=== PATIENT | female | born 1970 | race Caucasian/White ===

== ENCOUNTER 2023-01-15 14:25 | Emergency (ER) | payer MEDICAID ==
[~2023-01-15] VITALS: Ht 167.6 cm; Wt 79.5 kg
[~2023-01-15 14:25] MED LIST: HYDR-4383 PO; OMEP20CA15 PO
[2023-01-15 14:31] VITALS: BP 152/91
[2023-01-15 15:01] LABS: BASOPHILS # (AUTO) 0.1 X10'3 (0-0.2); EOSINOPHILS # (AUTO) 0.1 X10'3 (0-0.9); EOSINOPHILS % (AUTO) 1.3 % (0-6); HEMATOCRIT 47.3 % (35.0-45.0); HEMOGLOBIN 16.2 g/dl (12.0-16.0); LYMPHOCYTES # (AUTO) 1.8 X10'3 (1.1-4.8); MEAN CORPUSCULAR HEMOGLOBIN 32.3 PG (27.0-31.0); MEAN CORPUSCULAR HGB CONC 34.2 g/dL (33.0-36.5); MEAN CORPUSCULAR VOLUME 94.4 FL (78-98); MEAN PLATELET VOLUME 8.9 FL (7.4-10.4); MONOCYTES # (AUTO) 0.8 X10'3 (0-0.9); MONOCYTES % (AUTO) 10.6 % (2-12); NEUTROPHILS # (AUTO) 4.9 X10'3 (1.8-7.7); NEUTROPHILS % (AUTO) 64.1 % (42-75); PLATELET COUNT 190 X10'3 (140-440); RED BLOOD COUNT 5.01 X10'6 (4.20-5.60); RED CELL DISTRIBUTION WIDTH 14.4 % (11.5-14.5); WHITE BLOOD COUNT 7.7 X10'3 (4.5-11.0)
[2023-01-15 15:14] LABS: ALANINE AMINOTRANSFERASE 44 U/L (12-78); ALBUMIN 2.9 G/DL (3.4-5.0); ALBUMIN/GLOBULIN RATIO 0.6 (1.1-1.5); ALKALINE PHOSPHATASE 158 IU/L (46-116); ANION GAP 6 (8-16); ASPARTATE AMINO TRANSFERASE 82 U/L (10-37); BILIRUBIN,TOTAL 3.1 MG/DL (0.1-1.0); BLOOD UREA NITROGEN 6 MG/DL (7-18); BUN/CREATININE RATIO 8.7 (6.6-38.0); CALCIUM 8.7 MG/DL (8.5-10.1); CHLORIDE 97 MMOL/L (99-107); CREATININE 0.69 MG/DL (0.40-0.90); GLUCOSE 114 MG/DL (70-104); LIPASE 135 U/L (73-393); POTASSIUM 3.4 MMOL/L (3.5-5.1); SODIUM 133 MMOL/L (135-145); TOTAL CARBON DIOXIDE 30.4 MMOL/L (24-32); TOTAL PROTEIN 7.6 G/DL (6.4-8.2); eGFR 89 ML/MIN
[2023-01-15] MEDS ORDERED: normal saline 1000ML IV soln IVB ONE (15:55)
[2023-01-15 17:21] LABS: CLARITY,URINE SLIGHTLY CLOUDY (Clear); COLOR,URINE AMBER (Yellow)
[2023-01-15 17:22] LABS: URINE HCG NEGATIVE (NEG)
[2023-01-15 17:24] LABS: UA COLLECTION TYPE STRAIGHT CATH
[2023-01-15 17:28] LABS: BACTERIA,URINE FEW /HPF (Neg); MUCUS STRANDS MANY /LPF (Neg); SQUAMOUS EPITHELIAL CELL,UR FEW /LPF (FEW); TRANSITIONAL EPI CELLS,URINE FEW /HPF; WBC,URINE 0-4 /HPF (0-4)
[2023-01-15 17:29] LABS: FINE GRANULAR CAST 0-3 /LPF (NEGATIVE)
== END 2023-01-15 18:15 | disposition home or self-care (01) ==
LOC: ER 14:25
DX: E86.0 Dehydration (principal); R33.9 Retention of urine, unspecified; R10.9 Unspecified abdominal pain; R14.0 Abdominal distension (gaseous); K21.9 Gastro-esophageal reflux disease without esophagitis; J44.9 Chronic obstructive pulmonary disease, unspecified; E78.00 Pure hypercholesterolemia, unspecified; Z87.81 Personal history of (healed) traumatic fracture; F17.200 Nicotine dependence, unspecified, uncomplicated; Z79.899 Other long term (current) drug therapy; Z79.1 Long term (current) use of non-steroidal anti-inflammatories (NSAID)
CPT/HCPCS: 36415; 76700; 80053; 81001; 81025; 83690; 85025; 96360; 96361; 99284; J7030

== ENCOUNTER 2023-01-24 16:47 | Emergency (ER) | payer MEDICAID ==
[~2023-01-24] VITALS: Ht 167.6 cm; Wt 82.6 kg
[2023-01-24] MEDS ORDERED: LIDOcaine 1% W/epiNEPHrine 1:100,000 20ml vial SQ ONE (19:10)
[2023-01-24] MEDS ORDERED: LIDOCAINE 2%/EPI 1:100,000 inj. Multi-dose 20 ML VIAL SQ ONE (19:15)
[2023-01-24 20:27] VITALS: BP 150/91
[2023-01-24 21:04] LABS: ALBUMIN,BODY FLUID 0.7 G/DL; LDH,BODY FLUID 54 U/L
[2023-01-24 21:17] LABS: TOTAL PROTEIN,BODY FLUID < 2.0 G/DL
[2023-01-24 22:27] LABS: BFAPPEAR HAZY; BFCOLOR YELLOW; BFVOLUME 10 ML
[2023-01-24 22:31] LABS: BF MESOTHELIAL CELLS FEW; BF RBC COUNT 95 /CU MM; BF WBC COUNT 98 /CU MM (0-1000); LYMPHOCYTES,BODY FLUID 20 %; MONOCYTES,BODY FLUID 73 %; NEUTROPHILS,BODY FLUID 7 %
== END 2023-01-24 20:33 | disposition home or self-care (01) ==
LOC: ER 16:47
DX: R18.8 Other ascites (principal); E78.00 Pure hypercholesterolemia, unspecified; J44.9 Chronic obstructive pulmonary disease, unspecified; K21.9 Gastro-esophageal reflux disease without esophagitis; Z87.81 Personal history of (healed) traumatic fracture; F17.200 Nicotine dependence, unspecified, uncomplicated; Z79.899 Other long term (current) drug therapy
CPT/HCPCS: 36415; 49083; 82042; 83615; 84157; 89051; 99285

== ENCOUNTER 2023-02-02 19:44 | Emergency (ER) | payer MEDICAID ==
[~2023-02-02] VITALS: Ht 167.6 cm; Wt 82.1 kg
[2023-02-02] MEDS ORDERED: LIDOCAINE 2%/EPI 1:100,000 inj. Multi-dose 20 ML VIAL IJ ONE (20:40)
[2023-02-02 21:29] LABS: BASOPHILS # (AUTO) 0.1 X10'3 (0-0.2); BASOPHILS % (AUTO) 0.7 % (0-1); EOSINOPHILS # (AUTO) 0.1 X10'3 (0-0.9); EOSINOPHILS % (AUTO) 1.7 % (0-6); HEMATOCRIT 41.8 % (35.0-45.0); HEMOGLOBIN 14.5 g/dl (12.0-16.0); LYMPHOCYTES # (AUTO) 2.1 X10'3 (1.1-4.8); LYMPHOCYTES % (AUTO) 25.1 % (21-51); MEAN CORPUSCULAR HEMOGLOBIN 32.4 PG (27.0-31.0); MEAN CORPUSCULAR HGB CONC 34.7 g/dL (33.0-36.5); MEAN CORPUSCULAR VOLUME 93.2 FL (78-98); MEAN PLATELET VOLUME 8.8 FL (7.4-10.4); MONOCYTES % (AUTO) 11.7 % (2-12); NEUTROPHILS % (AUTO) 60.8 % (42-75); PLATELET COUNT 210 X10'3 (140-440); RED BLOOD COUNT 4.49 X10'6 (4.20-5.60); RED CELL DISTRIBUTION WIDTH 13.8 % (11.5-14.5); WHITE BLOOD COUNT 8.2 X10'3 (4.5-11.0)
[2023-02-02 21:58] LABS: ALANINE AMINOTRANSFERASE 42 U/L (12-78); ALBUMIN 2.5 G/DL (3.4-5.0); ALBUMIN/GLOBULIN RATIO 0.5 (1.1-1.5); ALKALINE PHOSPHATASE 112 IU/L (46-116); ANION GAP 9 (8-16); ASPARTATE AMINO TRANSFERASE 64 U/L (10-37); BILIRUBIN,TOTAL 1.7 MG/DL (0.1-1.0); BLOOD UREA NITROGEN 9 MG/DL (7-18); BUN/CREATININE RATIO 13.8 (10.0-20.0); CALCIUM 8.5 MG/DL (8.5-10.1); CHLORIDE 98 MMOL/L (99-107); CREATININE 0.65 MG/DL (0.40-0.90); GLUCOSE 104 MG/DL (70-104); LIPASE 105 U/L (73-393); SODIUM 132 MMOL/L (135-145); TOTAL PROTEIN 7.1 G/DL (6.4-8.2); eGFR > 90 ML/MIN
[2023-02-02 22:05] LABS: POTASSIUM 2.9 MMOL/L (3.5-5.1)
[2023-02-02] MEDS ORDERED: potassium Cl 20 mEq SR tablet PO ONE (22:10)
[2023-02-03] MEDS ORDERED: POTA-192 PO (00:54)
[2023-02-03 01:19] VITALS: BP 125/89
== END 2023-02-03 01:24 | disposition home or self-care (01) ==
LOC: ER 19:45
DX: R18.8 Other ascites (principal); R06.02 Shortness of breath; E78.00 Pure hypercholesterolemia, unspecified; J44.9 Chronic obstructive pulmonary disease, unspecified; K21.9 Gastro-esophageal reflux disease without esophagitis; Z98.890 Other specified postprocedural states; Z98.51 Tubal ligation status; Z72.89 Other problems related to lifestyle; Z79.899 Other long term (current) drug therapy
CPT/HCPCS: 36415; 49083; 80053; 83690; 85025; 99285

== ENCOUNTER 2023-02-09 15:58 | Emergency (ER) | payer MEDICAID ==
[~2023-02-09] VITALS: Ht 167.6 cm; Wt 79.1 kg
[~2023-02-09 15:58] MED LIST changes: +POTA-192 PO
[2023-02-09] MEDS ORDERED: LIDOcaine 1% 30ml preserv. free vial IJ ONE (18:50)
[2023-02-09 19:09] LABS: BASOPHILS # (AUTO) 0.1 X10'3 (0-0.2); BASOPHILS % (AUTO) 1.5 % (0-1); EOSINOPHILS # (AUTO) 0.2 X10'3 (0-0.9); HEMATOCRIT 46.3 % (35.0-45.0); HEMOGLOBIN 15.7 g/dl (12.0-16.0); LYMPHOCYTES # (AUTO) 2.2 X10'3 (1.1-4.8); LYMPHOCYTES % (AUTO) 29.3 % (21-51); MEAN CORPUSCULAR HEMOGLOBIN 32.2 PG (27.0-31.0); MEAN CORPUSCULAR HGB CONC 33.9 g/dL (33.0-36.5); MEAN CORPUSCULAR VOLUME 94.9 FL (78-98); MEAN PLATELET VOLUME 8.5 FL (7.4-10.4); MONOCYTES # (AUTO) 0.8 X10'3 (0-0.9); MONOCYTES % (AUTO) 11.1 % (2-12); NEUTROPHILS % (AUTO) 55.1 % (42-75); PLATELET COUNT 240 X10'3 (140-440); RED BLOOD COUNT 4.88 X10'6 (4.20-5.60); WHITE BLOOD COUNT 7.3 X10'3 (4.5-11.0)
[2023-02-09 19:22] LABS: ALANINE AMINOTRANSFERASE 38 U/L (12-78); ALBUMIN 2.3 G/DL (3.4-5.0); ALBUMIN/GLOBULIN RATIO 0.5 (1.1-1.5); ALKALINE PHOSPHATASE 122 IU/L (46-116); ANION GAP 6 (8-16); ASPARTATE AMINO TRANSFERASE 54 U/L (10-37); BILIRUBIN,TOTAL 1.4 MG/DL (0.1-1.0); BLOOD UREA NITROGEN 8 MG/DL (7-18); BUN/CREATININE RATIO 11.3 (10.0-20.0); CALCIUM 8.4 MG/DL (8.5-10.1); CHLORIDE 99 MMOL/L (99-107); CREATININE 0.71 MG/DL (0.40-0.90); GLUCOSE 141 MG/DL (70-104); POTASSIUM 4.3 MMOL/L (3.5-5.1); SODIUM 131 MMOL/L (135-145); TOTAL CARBON DIOXIDE 25.9 MMOL/L (24-32); TOTAL PROTEIN 7.1 G/DL (6.4-8.2); eGFR 86 ML/MIN
[2023-02-09 19:30] VITALS: BP_DIAS 88
[2023-02-09] MEDS ORDERED: spironolactone 25 MG tablet PO STA (19:53)
[2023-02-09] MEDS ORDERED: furosemide 20MG tablet PO ONE (19:55)
[2023-02-09 20:14] VITALS: BP_SYST 139
[2023-02-09] MEDS ORDERED: SPIR50TA5 PO ×2 (20:20)
[2023-02-09] MEDS ORDERED: FURO40TA4 PO ×2 (20:20)
== END 2023-02-09 20:30 | disposition home or self-care (01) ==
LOC: ER 15:59
DX: K70.31 Alcoholic cirrhosis of liver with ascites (principal); E78.00 Pure hypercholesterolemia, unspecified; J44.9 Chronic obstructive pulmonary disease, unspecified; K21.9 Gastro-esophageal reflux disease without esophagitis; Z98.51 Tubal ligation status; Z72.89 Other problems related to lifestyle; Z79.899 Other long term (current) drug therapy
CPT/HCPCS: 36415; 80053; 83735; 85025; 99283

== ENCOUNTER 2023-02-16 07:01 | Day surgery (SDC) | payer MEDICAID ==
[~2023-02-16] VITALS: Ht 167.6 cm; Wt 78.7 kg
[2023-02-16] VITALS (8 sets, daily range): BP systolic 103–142; BP diastolic 53–81
[~2023-02-16 07:01] MED LIST changes: +FURO40TA4 PO; +SPIR50TA5 PO
[2023-02-16] MEDS ORDERED: albumin 25% 100mL bottle x 1 IV PRN (07:20)
[2023-02-16] MEDS ORDERED: POTA10TA PO (07:29)
[2023-02-16] MEDS ORDERED: ATOR10TA70 PO (07:29)
[2023-02-16] MEDS ORDERED: BUDE10.27 INH (07:29)
[2023-02-16] MEDS ORDERED: ALBU18HF2 PO (07:29)
[2023-02-16] MEDS ORDERED: LIDOcaine 1% 30ml preserv. free vial SQ STA (07:43)
== END 2023-02-16 11:15 | disposition home or self-care (01) ==
LOC: SSTAY O 07:01
PROVIDERS: ATTEND Radiology Vascular & Interventional Radiology
DX: K70.31 Alcoholic cirrhosis of liver with ascites (principal); E78.00 Pure hypercholesterolemia, unspecified; J44.9 Chronic obstructive pulmonary disease, unspecified; K21.9 Gastro-esophageal reflux disease without esophagitis; Z98.51 Tubal ligation status; Z98.890 Other specified postprocedural states; F17.210 Nicotine dependence, cigarettes, uncomplicated; F15.91 Other stimulant use, unspecified, in remission; F10.91 Alcohol use, unspecified, in remission; Z79.899 Other long term (current) drug therapy
CPT/HCPCS: 49083; J3490; P9047; A6258; C1729

== ENCOUNTER 2023-02-27 08:05 | Day surgery (SDC) | payer MEDICAID ==
[~2023-02-27] VITALS: Ht 167.6 cm; Wt 77.4 kg
[2023-02-27] VITALS (8 sets, daily range): BP systolic 110–128; BP diastolic 70–89
[~2023-02-27 08:05] MED LIST changes: +ALBU18HF2 PO; +ATOR10TA70 PO; +BUDE10.27 INH; -FURO40TA4 PO; -HYDR-4383 PO; -POTA-192 PO; +POTA10TA PO; -SPIR50TA5 PO
[2023-02-27] MEDS ORDERED: LIDOcaine 1%/PF 5ML 10 MG/ML VIAL SQ ONE (08:15)
[2023-02-27] MEDS: albumin 25% 100mL bottle x 1 IV PRN ×2 (09:42→10:23)
== END 2023-02-27 11:05 | disposition home or self-care (01) ==
LOC: SSTAY O 08:05
PROVIDERS: ATTEND Radiology Vascular & Interventional Radiology
DX: K70.31 Alcoholic cirrhosis of liver with ascites (principal); E78.00 Pure hypercholesterolemia, unspecified; K21.9 Gastro-esophageal reflux disease without esophagitis; J44.9 Chronic obstructive pulmonary disease, unspecified; Z98.890 Other specified postprocedural states; Z98.51 Tubal ligation status; F17.210 Nicotine dependence, cigarettes, uncomplicated; F15.91 Other stimulant use, unspecified, in remission; F10.91 Alcohol use, unspecified, in remission; Z79.899 Other long term (current) drug therapy
CPT/HCPCS: 49083; J3490; P9047; A6258; A6449

== ENCOUNTER 2023-03-06 08:55 | Day surgery (SDC) | payer MEDICAID ==
[~2023-03-06] VITALS: Ht 167.6 cm; Wt 76.2 kg
[~2023-03-06 08:55] MED LIST changes: -POTA10TA PO
[2023-03-06] MEDS ORDERED: LIDOcaine 1%/PF 5ML 10 MG/ML VIAL SQ ONE (09:05)
[2023-03-06 09:06] VITALS: BP 123/85
[2023-03-06] MEDS ORDERED: albumin 25% 100mL bottle x 1 IV PRN (09:10)
[2023-03-06] MEDS ORDERED: IBUP-1984 PO (09:15)
[2023-03-06 11:09] VITALS: BP 135/77
[2023-03-06 11:24] VITALS: BP 144/101
[2023-03-06 11:39] VITALS: BP 151/92
== END 2023-03-06 11:55 | disposition home or self-care (01) ==
LOC: SSTAY O 08:55
PROVIDERS: ATTEND Radiology Vascular & Interventional Radiology
DX: K70.31 Alcoholic cirrhosis of liver with ascites (principal); J44.9 Chronic obstructive pulmonary disease, unspecified; K21.9 Gastro-esophageal reflux disease without esophagitis; F17.210 Nicotine dependence, cigarettes, uncomplicated; Z72.89 Other problems related to lifestyle; Z98.51 Tubal ligation status; Z98.890 Other specified postprocedural states; Z79.899 Other long term (current) drug therapy
CPT/HCPCS: 49083; J3490; P9047; A6258; A6449

== ENCOUNTER 2023-03-13 08:11 | Day surgery (SDC) | payer MEDICAID ==
[~2023-03-13] VITALS: Ht 167.6 cm; Wt 73.2 kg
[~2023-03-13 08:11] MED LIST changes: +IBUP-1984 PO
[2023-03-13] MEDS ORDERED: LIDOcaine 1%/PF 5ML 10 MG/ML VIAL SQ ONE (08:20)
[2023-03-13 08:30] VITALS: BP 103/59
[2023-03-13] MEDS ORDERED: albumin 25% 100mL bottle x 1 IV PRN (09:40)
[2023-03-13 09:55] VITALS: BP 113/73
[2023-03-13 10:00] VITALS: BP 122/76
[2023-03-13 10:15] VITALS: BP 119/81
[2023-03-13 10:30] VITALS: BP 128/69
[2023-03-13 10:50] VITALS: BP 128/69
== END 2023-03-13 10:50 | disposition home or self-care (01) ==
LOC: SSTAY O 08:11
PROVIDERS: ATTEND Radiology Vascular & Interventional Radiology
DX: K70.31 Alcoholic cirrhosis of liver with ascites (principal); E78.00 Pure hypercholesterolemia, unspecified; J44.9 Chronic obstructive pulmonary disease, unspecified; K21.9 Gastro-esophageal reflux disease without esophagitis; Z98.890 Other specified postprocedural states; Z98.51 Tubal ligation status; F17.210 Nicotine dependence, cigarettes, uncomplicated; F10.91 Alcohol use, unspecified, in remission; F15.91 Other stimulant use, unspecified, in remission; Z79.899 Other long term (current) drug therapy
CPT/HCPCS: 49083; J3490; P9047; A6258; A6449

== ENCOUNTER 2023-03-21 07:51 | Day surgery (SDC) | payer MEDICAID ==
[2023-03-21] VITALS (8 sets, daily range): BP systolic 100–141; BP diastolic 55–84
[~2023-03-21] VITALS: Ht 165.1 cm; Wt 77.2 kg
[2023-03-21] MEDS ORDERED: LIDOcaine 1%/PF 5ML 10 MG/ML VIAL SQ ONE (08:15)
[2023-03-21] MEDS: albumin 25% 100mL bottle x 1 IV PRN ×2 (09:44→10:40)
== END 2023-03-21 11:30 | disposition home or self-care (01) ==
LOC: SSTAY O 07:51
PROVIDERS: ATTEND Radiology Vascular & Interventional Radiology
DX: K70.31 Alcoholic cirrhosis of liver with ascites (principal); E78.00 Pure hypercholesterolemia, unspecified; K21.9 Gastro-esophageal reflux disease without esophagitis; J44.9 Chronic obstructive pulmonary disease, unspecified; Z98.890 Other specified postprocedural states; Z98.51 Tubal ligation status; F17.210 Nicotine dependence, cigarettes, uncomplicated; F10.91 Alcohol use, unspecified, in remission; F15.91 Other stimulant use, unspecified, in remission; Z79.899 Other long term (current) drug therapy
CPT/HCPCS: 49083; J3490; P9047; A6258

== ENCOUNTER 2023-03-28 06:32 | Day surgery (SDC) | payer MEDICAID ==
[2023-03-28] VITALS (7 sets, daily range): BP systolic 110–133; BP diastolic 51–86
[~2023-03-28] VITALS: Ht 167.6 cm; Wt 77.6 kg
[2023-03-28] MEDS ORDERED: LIDOcaine 1%/PF 5ML 10 MG/ML VIAL SQ ONE (06:50)
[2023-03-28] MEDS: albumin 25% 100mL bottle x 1 IV PRN ×2 (08:49→09:19)
== END 2023-03-28 10:15 | disposition home or self-care (01) ==
LOC: SSTAY O 06:32
PROVIDERS: ATTEND Radiology Diagnostic Radiology
DX: K70.31 Alcoholic cirrhosis of liver with ascites (principal); E78.00 Pure hypercholesterolemia, unspecified; J44.9 Chronic obstructive pulmonary disease, unspecified; K21.9 Gastro-esophageal reflux disease without esophagitis; Z98.890 Other specified postprocedural states; Z98.51 Tubal ligation status; F17.210 Nicotine dependence, cigarettes, uncomplicated; F15.91 Other stimulant use, unspecified, in remission; F10.91 Alcohol use, unspecified, in remission; Z79.899 Other long term (current) drug therapy
CPT/HCPCS: 49083; J3490; P9047; A6258; A6449

== ENCOUNTER 2023-04-04 07:55 | Day surgery (SDC) | payer MEDICAID ==
[~2023-04-04] VITALS: Ht 167.6 cm; Wt 76.0 kg
[2023-04-04] VITALS (7 sets, daily range): BP systolic 103–136; BP diastolic 57–136
[2023-04-04] MEDS ORDERED: LIDOcaine 1%/PF 5ML 10 MG/ML VIAL SQ ONE (08:00)
[2023-04-04] MEDS ORDERED: FOLI0.4T14 PO (08:20)
[2023-04-04] MEDS: albumin 25% 100mL bottle x 1 IV PRN ×2 (09:38→10:16)
== END 2023-04-04 11:03 | disposition home or self-care (01) ==
LOC: SSTAY O 07:55
PROVIDERS: ATTEND Radiology Vascular & Interventional Radiology
DX: K70.31 Alcoholic cirrhosis of liver with ascites (principal); E78.00 Pure hypercholesterolemia, unspecified; J44.9 Chronic obstructive pulmonary disease, unspecified; K21.9 Gastro-esophageal reflux disease without esophagitis; Z98.890 Other specified postprocedural states; Z98.51 Tubal ligation status; F15.91 Other stimulant use, unspecified, in remission; F10.91 Alcohol use, unspecified, in remission; F17.210 Nicotine dependence, cigarettes, uncomplicated; Z79.899 Other long term (current) drug therapy
CPT/HCPCS: 49083; J3490; P9047; A6258

== ENCOUNTER 2023-05-01 07:58 | Day surgery (SDC) | payer MEDICAID ==
[~2023-05-01] VITALS: Ht 167.6 cm; Wt 70.0 kg
[~2023-05-01 07:58] MED LIST changes: +FLUO10TA34 PO; +FOLI0.4T14 PO; +LIDOcaine 1%/PF 5ML 10 MG/ML VIAL SQ ONE
[2023-05-01] MEDS ORDERED: albumin 25% 100mL bottle x 1 IV PRN (08:15)
[2023-05-01 08:17] VITALS: BP 124/57
[2023-05-01 09:03] VITALS: BP 127/75
[2023-05-01 09:18] VITALS: BP 116/69
[2023-05-01 09:33] VITALS: BP 117/66
[2023-05-01 09:48] VITALS: BP 116/70
[2023-05-01 10:07] VITALS: BP 116/70
== END 2023-05-01 10:07 | disposition home or self-care (01) ==
LOC: SSTAY O 07:58
PROVIDERS: ATTEND Radiology Vascular & Interventional Radiology
DX: K70.31 Alcoholic cirrhosis of liver with ascites (principal); E78.00 Pure hypercholesterolemia, unspecified; J44.9 Chronic obstructive pulmonary disease, unspecified; K21.9 Gastro-esophageal reflux disease without esophagitis; Z98.890 Other specified postprocedural states; Z98.51 Tubal ligation status; F15.91 Other stimulant use, unspecified, in remission; F17.210 Nicotine dependence, cigarettes, uncomplicated; F10.91 Alcohol use, unspecified, in remission; Z79.899 Other long term (current) drug therapy
CPT/HCPCS: 49083; C1729; J3490; P9047; A6258

== ENCOUNTER 2023-05-23 08:00 | Day surgery (SDC) | payer MEDICAID ==
[2023-05-23] VITALS (8 sets, daily range): BP systolic 93–122; BP diastolic 49–74; PULSE 43–102; RESP 16; TEMP 98.6; O2SAT 100
[~2023-05-23] VITALS: Ht 167.6 cm; Wt 69.3 kg
[~2023-05-23 08:00] MED LIST changes: -LIDOcaine 1%/PF 5ML 10 MG/ML VIAL SQ ONE
[2023-05-23] MEDS ORDERED: LIDOcaine 1% 30ml preserv. free vial SQ STA (08:05)
[2023-05-23] MEDS ORDERED: LACT10SO3 PO (08:32)
[2023-05-23] MEDS: albumin 25% 100mL bottle x 1 IV PRN ×2 (09:24→09:37)
== END 2023-05-23 10:37 | disposition home or self-care (01) ==
LOC: SSTAY O 08:00
PROVIDERS: ATTEND Radiology Diagnostic Radiology
DX: K70.31 Alcoholic cirrhosis of liver with ascites (principal); E78.00 Pure hypercholesterolemia, unspecified; J44.9 Chronic obstructive pulmonary disease, unspecified; K21.9 Gastro-esophageal reflux disease without esophagitis; Z98.890 Other specified postprocedural states; Z98.51 Tubal ligation status; F15.91 Other stimulant use, unspecified, in remission; F17.210 Nicotine dependence, cigarettes, uncomplicated; F10.91 Alcohol use, unspecified, in remission; Z79.899 Other long term (current) drug therapy
CPT/HCPCS: 49083; C1729; J3490; P9047; A6258

== ENCOUNTER 2023-05-30 07:34 | Day surgery (SDC) | payer MEDICAID ==
[2023-05-30] VITALS (7 sets, daily range): BP systolic 111–122; BP diastolic 65–77; PULSE 72–78; RESP 16; TEMP 98.4; O2SAT 97–100
[~2023-05-30] VITALS: Ht 165.1 cm; Wt 67.8 kg
[~2023-05-30 07:34] MED LIST changes: +LACT10SO3 PO
[2023-05-30] MEDS ORDERED: LIDOcaine 1% 30ml preserv. free vial SQ STA (07:57)
[2023-05-30] MEDS ORDERED: LIDOcaine 1% (10mg/ml)w/preservative inj. 20ml MDV IJ ONE (08:00)
[2023-05-30] MEDS ORDERED: MIDO2.5T14 PO (08:15)
[2023-05-30] MEDS: albumin 25% 100mL bottle x 1 IV PRN ×2 (09:15→09:51)
== END 2023-05-30 10:30 | disposition home or self-care (01) ==
LOC: SSTAY O 07:34
PROVIDERS: ATTEND Radiology Vascular & Interventional Radiology
DX: K70.31 Alcoholic cirrhosis of liver with ascites (principal); E78.00 Pure hypercholesterolemia, unspecified; J44.9 Chronic obstructive pulmonary disease, unspecified; K21.9 Gastro-esophageal reflux disease without esophagitis; Z98.890 Other specified postprocedural states; Z98.51 Tubal ligation status; F15.91 Other stimulant use, unspecified, in remission; F17.210 Nicotine dependence, cigarettes, uncomplicated; F10.91 Alcohol use, unspecified, in remission; Z79.899 Other long term (current) drug therapy
CPT/HCPCS: 49083; C1729; J3490; P9047

== ENCOUNTER 2023-06-06 07:28 | Day surgery (SDC) | payer MEDICAID ==
[2023-06-06] VITALS (8 sets, daily range): BP systolic 103–120; BP diastolic 62–79; PULSE 75–85; RESP 16; TEMP 97.7; O2SAT 92–100
[~2023-06-06] VITALS: Ht 165.1 cm; Wt 70.1 kg
[~2023-06-06 07:28] MED LIST changes: +MIDO2.5T14 PO
[2023-06-06] MEDS: albumin 25% 100mL bottle x 1 IV PRN ×2 (09:56→10:43)
== END 2023-06-06 11:20 | disposition home or self-care (01) ==
LOC: SSTAY O 07:28
PROVIDERS: ATTEND Radiology Diagnostic Radiology
DX: K70.31 Alcoholic cirrhosis of liver with ascites (principal); J44.9 Chronic obstructive pulmonary disease, unspecified; K21.9 Gastro-esophageal reflux disease without esophagitis; E78.00 Pure hypercholesterolemia, unspecified; Z98.51 Tubal ligation status; Z98.890 Other specified postprocedural states; F17.210 Nicotine dependence, cigarettes, uncomplicated; F15.90 Other stimulant use, unspecified, uncomplicated; F10.91 Alcohol use, unspecified, in remission; Z79.899 Other long term (current) drug therapy
CPT/HCPCS: 49083; C1729; J3490; P9047; A6258

== ENCOUNTER 2023-06-13 07:31 | Day surgery (SDC) | payer MEDICAID ==
[~2023-06-13] VITALS: Ht 165.1 cm; Wt 69.4 kg
[2023-06-13 08:00] VITALS: BP 104/72; PULSE 85; RESP 16; TEMP 98.2; O2SAT 100
[2023-06-13] MEDS ORDERED: normal saline 1000ml 1,000 ML IV PRN (08:00)
[2023-06-13 08:40] VITALS: RESP 16; O2SAT 100
[2023-06-13] MEDS: albumin 25% 100mL bottle x 1 IV PRN ×2 (09:09→10:02)
[2023-06-13 09:34] VITALS: BP 104/74; PULSE 98; RESP 16; O2SAT 100
[2023-06-13 09:52] VITALS: BP 105/67; PULSE 79; RESP 16; O2SAT 98
[2023-06-13 10:07] VITALS: BP 103/50; PULSE 78; RESP 16; O2SAT 99
[2023-06-13 10:22] VITALS: BP 105/71; PULSE 75; RESP 16; O2SAT 99
== END 2023-06-13 10:40 | disposition home or self-care (01) ==
LOC: SSTAY O 07:31
PROVIDERS: ATTEND Radiology Vascular & Interventional Radiology
DX: K70.31 Alcoholic cirrhosis of liver with ascites (principal); E78.00 Pure hypercholesterolemia, unspecified; J44.9 Chronic obstructive pulmonary disease, unspecified; K21.9 Gastro-esophageal reflux disease without esophagitis; Z98.890 Other specified postprocedural states; Z98.51 Tubal ligation status; F17.210 Nicotine dependence, cigarettes, uncomplicated; F15.91 Other stimulant use, unspecified, in remission; F10.91 Alcohol use, unspecified, in remission; Z79.899 Other long term (current) drug therapy
CPT/HCPCS: 49083; C1729; J3490; P9047; A6258

== ENCOUNTER 2023-06-20 07:47 | Day surgery (SDC) | payer MEDICAID ==
[2023-06-20] VITALS (7 sets, daily range): BP systolic 111–127; BP diastolic 72–86; PULSE 63–71; RESP 16; TEMP 97.9; O2SAT 98–100
[~2023-06-20] VITALS: Ht 165.1 cm; Wt 68.1 kg
[2023-06-20] MEDS ORDERED: MIDO5TAB4 PO (08:01)
[2023-06-20] MEDS ORDERED: albumin 25% 100mL bottle x 1 IV PRN (08:05)
== END 2023-06-20 10:00 | disposition home or self-care (01) ==
LOC: SSTAY O 07:47
PROVIDERS: ATTEND Radiology Vascular & Interventional Radiology
DX: K70.31 Alcoholic cirrhosis of liver with ascites (principal); E78.00 Pure hypercholesterolemia, unspecified; J44.9 Chronic obstructive pulmonary disease, unspecified; K21.9 Gastro-esophageal reflux disease without esophagitis; Z98.51 Tubal ligation status; Z98.890 Other specified postprocedural states; F15.91 Other stimulant use, unspecified, in remission; F17.210 Nicotine dependence, cigarettes, uncomplicated; F10.91 Alcohol use, unspecified, in remission; Z79.899 Other long term (current) drug therapy
CPT/HCPCS: 49083; C1729; J3490; P9047; 32555; A6258; A6449

== ENCOUNTER 2023-06-27 08:04 | Day surgery (SDC) | payer MEDICAID ==
[~2023-06-27] VITALS: Ht 165.1 cm; Wt 66.5 kg
[2023-06-27] VITALS (9 sets, daily range): BP systolic 103–137; BP diastolic 58–84; PULSE 80–88; RESP 16; TEMP 97.6; O2SAT 99–100
[~2023-06-27 08:04] MED LIST changes: -LACT10SO3 PO; -MIDO2.5T14 PO; +MIDO5TAB4 PO
[2023-06-27] MEDS ORDERED: LACT10SO3 PO (09:00)
[2023-06-27] MEDS: albumin 25% 100mL bottle x 1 IV PRN ×2 (09:21→09:57)
== END 2023-06-27 10:40 | disposition home or self-care (01) ==
LOC: SSTAY O 08:04
PROVIDERS: ATTEND Radiology Vascular & Interventional Radiology
DX: K70.31 Alcoholic cirrhosis of liver with ascites (principal); E78.00 Pure hypercholesterolemia, unspecified; K21.9 Gastro-esophageal reflux disease without esophagitis; J44.9 Chronic obstructive pulmonary disease, unspecified; F10.91 Alcohol use, unspecified, in remission; Z98.890 Other specified postprocedural states; Z98.51 Tubal ligation status; F15.91 Other stimulant use, unspecified, in remission; F17.210 Nicotine dependence, cigarettes, uncomplicated; Z79.899 Other long term (current) drug therapy
CPT/HCPCS: 49083; C1729; J3490; P9047; A6258

== ENCOUNTER 2023-07-04 08:34 | Emergency (ER) | payer MEDICAID ==
[~2023-07-04] VITALS: Ht 170.2 cm; Wt 125.0 kg
[~2023-07-04 08:34] MED LIST changes: +LACT10SO3 PO
[2023-07-04 11:03] VITALS: BP 137/88; PULSE 91; RESP 16; O2SAT 99
--- NOTE | 2023-07-04 11:13 | NUR ---
BEDSIDE PROCEDURE, ASCITES BEING DRAINED
[2023-07-04 11:17] VITALS: BP 122/87; PULSE 91; RESP 17; O2SAT 100
[2023-07-04 11:28] VITALS: BP 114/78; PULSE 89; RESP 16; O2SAT 100
[2023-07-04] MEDS ORDERED: albumin (human) 25% 100 ML IV solution IV ONE (11:30)
[2023-07-04 11:44] VITALS: BP 150/93; PULSE 89; RESP 18; TEMP 97.9; O2SAT 98
== END 2023-07-04 13:45 | disposition home or self-care (01) ==
LOC: ER 08:34
DX: R18.8 Other ascites (principal); J44.9 Chronic obstructive pulmonary disease, unspecified; K74.60 Unspecified cirrhosis of liver; F17.200 Nicotine dependence, unspecified, uncomplicated; Z98.51 Tubal ligation status; Z79.899 Other long term (current) drug therapy
CPT/HCPCS: 49083; 96365; 99285; C1729; P9047; 49082

== ENCOUNTER 2023-07-11 08:05 | Day surgery (SDC) | payer MEDICAID ==
[~2023-07-11] VITALS: Ht 167.6 cm; Wt 69.6 kg
[2023-07-11] VITALS (9 sets, daily range): BP systolic 112–139; BP diastolic 72–87; PULSE 80–89; RESP 14–16; TEMP 97.8; O2SAT 81–100
[2023-07-11] MEDS: albumin 25% 100mL bottle x 1 IV PRN ×2 (08:43→09:27)
[2023-07-11] MEDS ORDERED: famotidine 20mg tablet PO ONE (08:55)
== END 2023-07-11 10:15 | disposition home or self-care (01) ==
LOC: SSTAY O 08:05
PROVIDERS: ATTEND Radiology Vascular & Interventional Radiology
DX: K70.31 Alcoholic cirrhosis of liver with ascites (principal); E78.00 Pure hypercholesterolemia, unspecified; J44.9 Chronic obstructive pulmonary disease, unspecified; K21.9 Gastro-esophageal reflux disease without esophagitis; Z98.51 Tubal ligation status; Z98.890 Other specified postprocedural states; F15.91 Other stimulant use, unspecified, in remission; F17.210 Nicotine dependence, cigarettes, uncomplicated; F10.91 Alcohol use, unspecified, in remission; Z79.899 Other long term (current) drug therapy
CPT/HCPCS: 49083; C1729; J3490; P9047; A6258; A6449

== ENCOUNTER 2023-07-17 08:08 | Day surgery (SDC) | payer MEDICAID ==
[2023-07-17] VITALS (9 sets, daily range): BP systolic 117–148; BP diastolic 63–85; PULSE 83–104; RESP 14–16; TEMP 97.7; O2SAT 96–100
[~2023-07-17] VITALS: Ht 167.6 cm; Wt 69.4 kg
[2023-07-17] MEDS: albumin 25% 100mL bottle x 1 IV PRN ×2 (09:15→09:55)
[2023-07-17] MEDS ORDERED: famotidine 20mg tablet PO ONE (09:15)
== END 2023-07-17 10:45 | disposition home or self-care (01) ==
LOC: SSTAY O 08:08
PROVIDERS: ATTEND Radiology Diagnostic Radiology
DX: K70.31 Alcoholic cirrhosis of liver with ascites (principal); E78.00 Pure hypercholesterolemia, unspecified; J44.9 Chronic obstructive pulmonary disease, unspecified; K21.9 Gastro-esophageal reflux disease without esophagitis; Z98.890 Other specified postprocedural states; Z98.51 Tubal ligation status; F15.91 Other stimulant use, unspecified, in remission; F17.210 Nicotine dependence, cigarettes, uncomplicated; F10.91 Alcohol use, unspecified, in remission
CPT/HCPCS: 49083; C1729; J3490; P9047; A6258; A6449

== ENCOUNTER 2023-08-01 08:10 | Day surgery (SDC) | payer MEDICAID ==
[~2023-08-01] VITALS: Ht 167.6 cm; Wt 66.2 kg
[2023-08-01] VITALS (7 sets, daily range): BP systolic 101–117; BP diastolic 62–74; PULSE 80–84; RESP 16; TEMP 98.1; O2SAT 97–100
[~2023-08-01 08:10] MED LIST changes: -IBUP-1984 PO
[2023-08-01] MEDS ORDERED: albumin 25% 100mL bottle x 1 IV PRN (08:25)
[2023-08-01] MEDS ORDERED: SPIR25TA5 PO (08:40)
[2023-08-01] MEDS ORDERED: FURO20TA4 PO (08:40)
[2023-08-08] MEDS ORDERED: OMEP40CA21 PO (07:58)
== END 2023-08-01 10:25 | disposition home or self-care (01) ==
LOC: SSTAY O 08:10
PROVIDERS: ATTEND Radiology Vascular & Interventional Radiology
DX: K70.31 Alcoholic cirrhosis of liver with ascites (principal); E78.00 Pure hypercholesterolemia, unspecified; J44.9 Chronic obstructive pulmonary disease, unspecified; K21.9 Gastro-esophageal reflux disease without esophagitis; Z98.890 Other specified postprocedural states; Z98.51 Tubal ligation status; F15.91 Other stimulant use, unspecified, in remission; F17.210 Nicotine dependence, cigarettes, uncomplicated; F10.91 Alcohol use, unspecified, in remission; Z79.899 Other long term (current) drug therapy
CPT/HCPCS: 49083; C1729; J3490; P9047; A6258

== ENCOUNTER 2023-08-15 08:11 | Day surgery (SDC) | payer MEDICAID ==
[~2023-08-15] VITALS: Ht 167.6 cm; Wt 67.1 kg
[2023-08-15] VITALS (7 sets, daily range): BP systolic 101–117; BP diastolic 53–80; PULSE 77–82; RESP 16; TEMP 97.7; O2SAT 96–100
[~2023-08-15 08:11] MED LIST changes: +FURO20TA4 PO; -OMEP20CA15 PO; +OMEP40CA21 PO; +SPIR25TA5 PO
[2023-08-15] MEDS ORDERED: albumin 25% 100mL bottle x 1 IV PRN (08:30)
[2023-08-15] MEDS ORDERED: normal saline 1000ml 1,000 ML IV PRN (08:30)
== END 2023-08-15 10:25 | disposition home or self-care (01) ==
LOC: SSTAY O 08:11
PROVIDERS: ATTEND Radiology Vascular & Interventional Radiology
DX: R18.8 Other ascites (principal); E78.00 Pure hypercholesterolemia, unspecified; J44.9 Chronic obstructive pulmonary disease, unspecified; K21.9 Gastro-esophageal reflux disease without esophagitis; K74.60 Unspecified cirrhosis of liver; Z98.51 Tubal ligation status; F17.210 Nicotine dependence, cigarettes, uncomplicated; Z79.899 Other long term (current) drug therapy; Z98.890 Other specified postprocedural states
CPT/HCPCS: 49083; C1729; J3490; P9047; A6258

== ENCOUNTER 2023-08-22 08:15 | Day surgery (SDC) | payer MEDICAID ==
[~2023-08-22] VITALS: Ht 167.6 cm; Wt 66.8 kg
[2023-08-22 08:25] VITALS: BP 122/81; PULSE 84; RESP 16; TEMP 97.7; O2SAT 96
[2023-08-22] MEDS ORDERED: FURO40TA4 PO (08:26)
[2023-08-22] MEDS ORDERED: HYDR-3686 PO (08:26)
[2023-08-22] MEDS ORDERED: SPIR25TA5 PO (08:27)
[2023-08-22] MEDS ORDERED: albumin 25% 100mL bottle x 1 IV PRN (08:30)
[2023-08-22 09:00] VITALS: BP 122/74; PULSE 84; RESP 16; O2SAT 98
[2023-08-22 09:15] VITALS: BP 115/71; PULSE 80; RESP 15; O2SAT 98
[2023-08-22 09:30] VITALS: BP 109/66; PULSE 78; RESP 17; O2SAT 96
[2023-08-22 09:45] VITALS: BP 111/70; PULSE 76; RESP 16; O2SAT 95
[2023-08-22 10:00] VITALS: BP 109/68; PULSE 79; RESP 16; O2SAT 95
== END 2023-08-22 10:00 | disposition home or self-care (01) ==
LOC: SSTAY O 08:15
PROVIDERS: ATTEND Radiology Vascular & Interventional Radiology
DX: R18.8 Other ascites (principal); R14.0 Abdominal distension (gaseous); E78.00 Pure hypercholesterolemia, unspecified; J44.9 Chronic obstructive pulmonary disease, unspecified; K21.9 Gastro-esophageal reflux disease without esophagitis; F15.90 Other stimulant use, unspecified, uncomplicated; Z98.51 Tubal ligation status; Z98.890 Other specified postprocedural states
CPT/HCPCS: 49083; C1729; P9047; A6258; A6449

== ENCOUNTER 2023-09-01 08:15 | Day surgery (SDC) | payer MEDICAID ==
[2023-09-01] VITALS (7 sets, daily range): BP systolic 106–129; BP diastolic 40–81; PULSE 73–82; RESP 15–17; TEMP 98.6; O2SAT 97–99
[~2023-09-01] VITALS: Ht 167.6 cm; Wt 70.2 kg
[~2023-09-01 08:15] MED LIST changes: -FURO20TA4 PO; +FURO40TA4 PO; +HYDR-3686 PO
[2023-09-01] MEDS ORDERED: FURO20TA4 PO (08:40)
[2023-09-01] MEDS: albumin 25% 100mL bottle x 1 IV PRN ×2 (10:29→10:33)
== END 2023-09-01 11:17 | disposition home or self-care (01) ==
LOC: SSTAY O 08:15
PROVIDERS: ATTEND Radiology Vascular & Interventional Radiology
DX: K70.31 Alcoholic cirrhosis of liver with ascites (principal); Z98.890 Other specified postprocedural states; E78.00 Pure hypercholesterolemia, unspecified; J44.9 Chronic obstructive pulmonary disease, unspecified; K21.9 Gastro-esophageal reflux disease without esophagitis; E87.1 Hypo-osmolality and hyponatremia; Z98.51 Tubal ligation status; Z79.899 Other long term (current) drug therapy; F10.11 Alcohol abuse, in remission; F15.91 Other stimulant use, unspecified, in remission; F17.210 Nicotine dependence, cigarettes, uncomplicated
CPT/HCPCS: 49083; C1729; P9047; A6258; A6449

== ENCOUNTER 2023-09-12 07:46 | Day surgery (SDC) | payer MEDICAID ==
[2023-09-12] VITALS (7 sets, daily range): BP systolic 114–130; BP diastolic 53–89; PULSE 75–90; RESP 16; TEMP 97.8; O2SAT 96–100
[~2023-09-12] VITALS: Ht 167.6 cm; Wt 76.1 kg
[~2023-09-12 07:46] MED LIST changes: +FURO20TA4 PO; -FURO40TA4 PO
[2023-09-12] MEDS: albumin 25% 100mL bottle x 1 IV PRN ×2 (09:53→10:27)
== END 2023-09-12 11:20 | disposition home or self-care (01) ==
LOC: SSTAY O 07:46
PROVIDERS: ATTEND Radiology Diagnostic Radiology
DX: K70.31 Alcoholic cirrhosis of liver with ascites (principal); E78.00 Pure hypercholesterolemia, unspecified; J44.9 Chronic obstructive pulmonary disease, unspecified; K21.9 Gastro-esophageal reflux disease without esophagitis; E87.1 Hypo-osmolality and hyponatremia; Z98.51 Tubal ligation status; Z98.890 Other specified postprocedural states; F15.91 Other stimulant use, unspecified, in remission; F10.91 Alcohol use, unspecified, in remission; F17.210 Nicotine dependence, cigarettes, uncomplicated; Z79.899 Other long term (current) drug therapy
CPT/HCPCS: 49083; C1729; P9047; A6258

== ENCOUNTER 2023-09-19 07:39 | Day surgery (SDC) | payer MEDICAID ==
[~2023-09-19] VITALS: Ht 167.6 cm; Wt 68.7 kg
[2023-09-19] VITALS (9 sets, daily range): BP systolic 110–144; BP diastolic 63–80; PULSE 70–81; RESP 16; TEMP 98.4; O2SAT 96–99
[~2023-09-19 07:39] MED LIST changes: -HYDR-3686 PO
[2023-09-19] MEDS ORDERED: normal saline 1000ml 1,000 ML IV PRN (08:00)
[2023-09-19] MEDS ORDERED: albumin (human) 25% 100 ML IV solution IV ONE (08:00)
[2023-09-19] MEDS ORDERED: albumin 25% 100mL bottle x 1 IV PRN (08:00)
[2023-09-19] MEDS ORDERED: ONDA-103 PO (08:17)
== END 2023-09-19 11:20 | disposition home or self-care (01) ==
LOC: SSTAY O 07:39
PROVIDERS: ATTEND Radiology Diagnostic Radiology
DX: K70.31 Alcoholic cirrhosis of liver with ascites (principal); E78.00 Pure hypercholesterolemia, unspecified; J44.9 Chronic obstructive pulmonary disease, unspecified; K21.9 Gastro-esophageal reflux disease without esophagitis; E87.1 Hypo-osmolality and hyponatremia; Z98.890 Other specified postprocedural states; Z98.51 Tubal ligation status; F15.91 Other stimulant use, unspecified, in remission; F17.210 Nicotine dependence, cigarettes, uncomplicated; F10.21 Alcohol dependence, in remission; Z79.899 Other long term (current) drug therapy
CPT/HCPCS: 49083; C1729; P9047; A6258

== ENCOUNTER 2023-09-28 08:08 | Day surgery (SDC) | payer MEDICAID ==
[~2023-09-28] VITALS: Ht 167.6 cm; Wt 69.7 kg
[2023-09-28] VITALS (9 sets, daily range): BP systolic 100–120; BP diastolic 52–76; PULSE 70–94; RESP 16; TEMP 97.6; O2SAT 95–100
[~2023-09-28 08:08] MED LIST changes: +ONDA-103 PO
[2023-09-28] MEDS: albumin 25% 100mL bottle x 1 IV PRN ×2 (09:41→10:35)
== END 2023-09-28 11:15 | disposition home or self-care (01) ==
LOC: SSTAY O 08:08
PROVIDERS: ATTEND Radiology Vascular & Interventional Radiology
DX: K70.31 Alcoholic cirrhosis of liver with ascites (principal); E78.00 Pure hypercholesterolemia, unspecified; J44.9 Chronic obstructive pulmonary disease, unspecified; K21.9 Gastro-esophageal reflux disease without esophagitis; E87.1 Hypo-osmolality and hyponatremia; Z98.890 Other specified postprocedural states; Z98.51 Tubal ligation status; F15.90 Other stimulant use, unspecified, uncomplicated; F17.210 Nicotine dependence, cigarettes, uncomplicated; F10.21 Alcohol dependence, in remission; Z79.899 Other long term (current) drug therapy
CPT/HCPCS: 49083; C1729; P9047; A6258

== ENCOUNTER 2023-10-09 06:02 | Day surgery (SDC) | payer MEDICAID ==
[~2023-10-09] VITALS: Ht 167.6 cm; Wt 70.2 kg
[2023-10-09] VITALS (8 sets, daily range): BP systolic 105–132; BP diastolic 62–97; PULSE 69–92; RESP 14–16; TEMP 98.4; O2SAT 92–98
[2023-10-09] MEDS: albumin 25% 100mL bottle x 1 IV PRN ×2 (08:56→09:12)
== END 2023-10-09 10:00 | disposition home or self-care (01) ==
LOC: SSTAY O 06:02
PROVIDERS: ATTEND Radiology Vascular & Interventional Radiology
DX: K70.31 Alcoholic cirrhosis of liver with ascites (principal); E78.00 Pure hypercholesterolemia, unspecified; J44.9 Chronic obstructive pulmonary disease, unspecified; K21.9 Gastro-esophageal reflux disease without esophagitis; E87.1 Hypo-osmolality and hyponatremia; Z98.51 Tubal ligation status; F15.91 Other stimulant use, unspecified, in remission; F17.210 Nicotine dependence, cigarettes, uncomplicated; F10.21 Alcohol dependence, in remission; Z79.899 Other long term (current) drug therapy; Z98.890 Other specified postprocedural states
CPT/HCPCS: 49083; C1729; P9047; A6258; A6449

== ENCOUNTER 2023-10-19 07:52 | Day surgery (SDC) | payer MEDICAID ==
[2023-10-19] VITALS (13 sets, daily range): BP systolic 95–136; BP diastolic 52–106; PULSE 74–86; RESP 16; TEMP 98.1; O2SAT 96–99
[~2023-10-19] VITALS: Ht 167.6 cm; Wt 71.8 kg
[2023-10-19] MEDS: albumin 25% 100mL bottle x 1 IV PRN ×3 (09:43→10:31)
== END 2023-10-19 12:00 | disposition home or self-care (01) ==
LOC: SSTAY O 07:52
PROVIDERS: ATTEND Radiology Vascular & Interventional Radiology
DX: K70.31 Alcoholic cirrhosis of liver with ascites (principal); E78.00 Pure hypercholesterolemia, unspecified; J44.9 Chronic obstructive pulmonary disease, unspecified; K21.9 Gastro-esophageal reflux disease without esophagitis; E87.1 Hypo-osmolality and hyponatremia; Z98.51 Tubal ligation status; Z98.890 Other specified postprocedural states; F17.210 Nicotine dependence, cigarettes, uncomplicated; F10.91 Alcohol use, unspecified, in remission; F15.91 Other stimulant use, unspecified, in remission; Z79.899 Other long term (current) drug therapy
CPT/HCPCS: 49083; C1729; P9047; A6258; A6449

== ENCOUNTER 2023-10-31 07:52 | Day surgery (SDC) | payer MEDICAID ==
[~2023-10-31] VITALS: Ht 167.6 cm; Wt 70.2 kg
[2023-10-31] VITALS (7 sets, daily range): BP systolic 101–134; BP diastolic 57–77; PULSE 70–81; RESP 16–18; TEMP 98.1; O2SAT 95–98
[2023-10-31] MEDS ORDERED: normal saline 1000ml 1,000 ML IV PRN (08:10)
[2023-10-31] MEDS: albumin 25% 100mL bottle x 1 IV PRN ×2 (08:19→09:19)
== END 2023-10-31 10:30 | disposition home or self-care (01) ==
LOC: SSTAY O 07:52
PROVIDERS: ATTEND Radiology Vascular & Interventional Radiology
DX: K70.31 Alcoholic cirrhosis of liver with ascites (principal); E78.00 Pure hypercholesterolemia, unspecified; J44.9 Chronic obstructive pulmonary disease, unspecified; K21.9 Gastro-esophageal reflux disease without esophagitis; E87.1 Hypo-osmolality and hyponatremia; Z98.890 Other specified postprocedural states; Z98.51 Tubal ligation status; Z79.899 Other long term (current) drug therapy; F15.91 Other stimulant use, unspecified, in remission; F10.91 Alcohol use, unspecified, in remission; F17.210 Nicotine dependence, cigarettes, uncomplicated
CPT/HCPCS: 49083; C1729; P9047; A6258; A6449

== ENCOUNTER 2023-11-07 08:02 | Day surgery (SDC) | payer MEDICAID ==
[~2023-11-07] VITALS: Ht 167.6 cm; Wt 64.7 kg
[2023-11-07 08:10] VITALS: BP 107/60; PULSE 89; RESP 16; TEMP 97.7; O2SAT 99
[2023-11-07] MEDS: albumin 25% 100mL bottle x 1 IV PRN ×2 (08:35→09:22)
[2023-11-07 08:50] VITALS: BP 110/78; PULSE 88; RESP 17; O2SAT 96
[2023-11-07 09:05] VITALS: BP 106/78; PULSE 72; RESP 16; O2SAT 99
[2023-11-07 09:20] VITALS: BP 108/64; PULSE 76; RESP 16; O2SAT 98
[2023-11-07 09:35] VITALS: BP 101/65; PULSE 71; RESP 15; O2SAT 99
[2023-11-07 09:50] VITALS: BP 104/60; PULSE 78; RESP 16; O2SAT 99
== END 2023-11-07 10:02 | disposition home or self-care (01) ==
LOC: SSTAY O 08:02
PROVIDERS: ATTEND Radiology Diagnostic Radiology
DX: K70.31 Alcoholic cirrhosis of liver with ascites (principal); J44.9 Chronic obstructive pulmonary disease, unspecified; K21.9 Gastro-esophageal reflux disease without esophagitis; E87.1 Hypo-osmolality and hyponatremia; E78.00 Pure hypercholesterolemia, unspecified; Z98.890 Other specified postprocedural states; Z98.51 Tubal ligation status; F17.210 Nicotine dependence, cigarettes, uncomplicated; F15.91 Other stimulant use, unspecified, in remission; F10.91 Alcohol use, unspecified, in remission; Z79.899 Other long term (current) drug therapy
CPT/HCPCS: 49083; C1729; P9047; A6258; A6449

== ENCOUNTER 2023-11-14 07:43 | Day surgery (SDC) | payer MEDICAID ==
[2023-11-14] VITALS (9 sets, daily range): BP systolic 95–125; BP diastolic 36–79; PULSE 69–91; RESP 12; TEMP 98.2; O2SAT 95–98
[~2023-11-14] VITALS: Ht 167.6 cm; Wt 70.8 kg
[2023-11-14] MEDS ORDERED: normal saline 1000ml 1,000 ML IV PRN (07:55)
[2023-11-14] MEDS: albumin 25% 100mL bottle x 1 IV PRN ×2 (08:27→10:05)
== END 2023-11-14 10:50 | disposition short-term general hospital (02) ==
LOC: SSTAY O 07:43
PROVIDERS: ATTEND Radiology Vascular & Interventional Radiology
DX: K70.31 Alcoholic cirrhosis of liver with ascites (principal); E78.00 Pure hypercholesterolemia, unspecified; J44.9 Chronic obstructive pulmonary disease, unspecified; K21.9 Gastro-esophageal reflux disease without esophagitis; E87.1 Hypo-osmolality and hyponatremia; Z98.51 Tubal ligation status; Z98.890 Other specified postprocedural states; F17.210 Nicotine dependence, cigarettes, uncomplicated; F10.91 Alcohol use, unspecified, in remission; F15.91 Other stimulant use, unspecified, in remission; Z79.899 Other long term (current) drug therapy
CPT/HCPCS: 49083; C1729; P9047; A6258; A6449

== ENCOUNTER 2023-11-21 07:47 | Day surgery (SDC) | payer MEDICAID ==
[2023-11-21] VITALS (8 sets, daily range): BP systolic 102–125; BP diastolic 65–81; PULSE 83–91; RESP 16; TEMP 99.5; O2SAT 97–99
[~2023-11-21] VITALS: Ht 167.6 cm; Wt 68.1 kg
[~2023-11-21 07:47] MED LIST changes: -OMEP40CA21 PO
[2023-11-21] MEDS ORDERED: URSO300C2 PO (08:22)
[2023-11-21] MEDS ORDERED: FLUT16SP26 BOTHNARES (08:22)
[2023-11-21] MEDS ORDERED: ALBU2.5V13 IH (08:22)
[2023-11-21] MEDS ORDERED: HYDR-3686 PO (08:22)
[2023-11-21] MEDS: albumin 25% 100mL bottle x 1 IV PRN ×2 (09:09→09:55)
== END 2023-11-21 10:45 | disposition home or self-care (01) ==
LOC: SSTAY O 07:47
PROVIDERS: ATTEND Radiology Vascular & Interventional Radiology
DX: K70.31 Alcoholic cirrhosis of liver with ascites (principal); E78.00 Pure hypercholesterolemia, unspecified; J44.9 Chronic obstructive pulmonary disease, unspecified; K21.9 Gastro-esophageal reflux disease without esophagitis; E87.1 Hypo-osmolality and hyponatremia; F15.91 Other stimulant use, unspecified, in remission; F10.91 Alcohol use, unspecified, in remission; F17.290 Nicotine dependence, other tobacco product, uncomplicated; Z98.51 Tubal ligation status; Z98.890 Other specified postprocedural states; Z79.899 Other long term (current) drug therapy
CPT/HCPCS: 49083; C1729; P9047; A6258

== ENCOUNTER 2023-11-25 14:57 | Emergency (ER) | payer MEDICAID ==
[~2023-11-25] VITALS: Ht 167.6 cm; Wt 63.5 kg
[~2023-11-25 14:57] MED LIST changes: +ALBU2.5V13 IH; +FLUT16SP26 BOTHNARES; +HYDR-3686 PO; +URSO300C2 PO
[2023-11-25 15:54] LABS: BILIRUBIN,URINE NEGATIVE (Neg); CLARITY,URINE CLEAR (Clear); COLOR,URINE YELLOW (Yellow); GLUCOSE, URINE NEGATIVE (Neg); KETONES,URINE NEGATIVE (Neg); LEUKOCYTE ESTERASE ,URINE NEGATIVE (Neg); NITRITES, URINE NEGATIVE (Neg); OCCULT BLOOD,URINE NEGATIVE (Neg); PROTEIN,URINE NEGATIVE (Neg); UROBILINOGEN,URINE 0.2 E.U/dL (0.2-1.0)
[2023-11-25 15:55] LABS: URINE HCG NEGATIVE (NEG)
[2023-11-25 15:57] LABS: UA COLLECTION TYPE NON-SPECIFIED
[2023-11-25 16:02] LABS: BASOPHILS % (AUTO) 0.3 % (0-1); EOSINOPHILS # (AUTO) 0.1 X10'3 (0-0.9); EOSINOPHILS % (AUTO) 0.4 % (0-6); HEMATOCRIT 39.4 % (35.0-45.0); HEMOGLOBIN 13.1 g/dl (12.0-16.0); LYMPHOCYTES # (AUTO) 0.9 X10'3 (1.1-4.8); LYMPHOCYTES % (AUTO) 6.7 % (21-51); MEAN CORPUSCULAR HGB CONC 33.1 g/dL (33.0-36.5); MEAN CORPUSCULAR VOLUME 84.7 FL (78-98); MEAN PLATELET VOLUME 7.7 FL (7.4-10.4); MONOCYTES % (AUTO) 7.4 % (2-12); NEUTROPHILS % (AUTO) 85.2 % (42-75); PLATELET COUNT 372 X10'3 (140-440); RED BLOOD COUNT 4.66 X10'6 (4.20-5.60); RED CELL DISTRIBUTION WIDTH 14.1 % (11.5-14.5); WHITE BLOOD COUNT 12.9 X10'3 (4.5-11.0)
[2023-11-25 16:09] LABS: ALANINE AMINOTRANSFERASE 16 U/L (12-78); ALBUMIN 2.8 G/DL (3.4-5.0); ALBUMIN/GLOBULIN RATIO 0.7 (1.1-1.5); ALKALINE PHOSPHATASE 122 IU/L (46-116); ANION GAP 10 (8-16); ASPARTATE AMINO TRANSFERASE 19 U/L (10-37); BILIRUBIN,TOTAL 0.8 MG/DL (0.1-1.0); BLOOD UREA NITROGEN 12 MG/DL (7-18); BUN/CREATININE RATIO 9.4 (10.0-20.0); CALCIUM 8.5 MG/DL (8.5-10.1); CHLORIDE 93 MMOL/L (99-107); CREATININE 1.27 MG/DL (0.40-0.90); GLUCOSE 128 MG/DL (70-104); LIPASE 56 U/L (16-77); POTASSIUM 3.1 MMOL/L (3.5-5.1); SODIUM 127 MMOL/L (135-145); TOTAL PROTEIN 7.1 G/DL (6.4-8.2); eCRCL 47 ML/MIN; eGFR 44 ML/MIN
[2023-11-25 17:00] LABS: C DIFF ANTIGEN NEGATIVE (NEGATIVE); C DIFF SPECIMEN=DIARRHEA? ACCEPTABLE; C DIFFICILE TOXINS A&B NEGATIVE (Neg)
[2023-11-25 20:06] VITALS: BP 115/76; PULSE 128; RESP 16; TEMP 97.9; O2SAT 99
== END 2023-11-25 20:14 | disposition home or self-care (01) ==
LOC: ER 14:59
DX: R19.7 Diarrhea, unspecified (principal); R11.2 Nausea with vomiting, unspecified; K21.9 Gastro-esophageal reflux disease without esophagitis; J44.9 Chronic obstructive pulmonary disease, unspecified; Z79.899 Other long term (current) drug therapy; Z79.1 Long term (current) use of non-steroidal anti-inflammatories (NSAID)
CPT/HCPCS: 36415; 80053; 81003; 81025; 83690; 85025; 87045; 87046; 87324; 87449; 99283

== ENCOUNTER 2023-12-05 08:00 | Day surgery (SDC) | payer MEDICAID ==
[2023-12-05 08:00] VITALS: BP 115/50; PULSE 89; RESP 16; TEMP 98.2; O2SAT 97
[2023-12-05 08:39] VITALS: BP 113/76; PULSE 74; RESP 16; O2SAT 99
[2023-12-05] MEDS: albumin 25% 100mL bottle x 1 IV PRN (08:41)
[2023-12-05 08:54] VITALS: BP 112/69; PULSE 79; RESP 16; O2SAT 99
[2023-12-05 09:09] VITALS: BP 111/58; PULSE 80; RESP 16; O2SAT 99
[2023-12-05 09:24] VITALS: BP 101/59; PULSE 82; RESP 16; O2SAT 99
== END 2023-12-05 09:35 | disposition home or self-care (01) ==
LOC: SSTAY O 08:00
PROVIDERS: ATTEND Radiology Vascular & Interventional Radiology
DX: R18.8 Other ascites (principal); R14.0 Abdominal distension (gaseous); E78.00 Pure hypercholesterolemia, unspecified; K21.9 Gastro-esophageal reflux disease without esophagitis; E66.3 Overweight; J44.9 Chronic obstructive pulmonary disease, unspecified; F17.210 Nicotine dependence, cigarettes, uncomplicated; Z79.1 Long term (current) use of non-steroidal anti-inflammatories (NSAID); Z79.899 Other long term (current) drug therapy; Z98.51 Tubal ligation status; Z98.890 Other specified postprocedural states; Z68.24 Body mass index [BMI] 24.0-24.9, adult
CPT/HCPCS: 49083; C1729; P9047; A6258

== ENCOUNTER 2023-12-12 07:58 | Day surgery (SDC) | payer MEDICAID ==
[2023-12-12] VITALS (7 sets, daily range): BP systolic 107–120; BP diastolic 62–72; PULSE 87–97; RESP 16; TEMP 98.4; O2SAT 97–98
[~2023-12-12] VITALS: Ht 167.6 cm; Wt 67.4 kg
[~2023-12-12 07:58] MED LIST changes: -ALBU2.5V13 IH
[2023-12-12] MEDS ORDERED: DOXE10CA3 PO (08:27)
[2023-12-12] MEDS: albumin 25% 100mL bottle x 1 IV PRN (09:56)
== END 2023-12-12 11:03 | disposition home or self-care (01) ==
LOC: SSTAY O 07:58
PROVIDERS: ATTEND Radiology Vascular & Interventional Radiology
DX: R18.8 Other ascites (principal); R14.0 Abdominal distension (gaseous); E78.00 Pure hypercholesterolemia, unspecified; J44.9 Chronic obstructive pulmonary disease, unspecified; K21.9 Gastro-esophageal reflux disease without esophagitis; K74.60 Unspecified cirrhosis of liver; E87.1 Hypo-osmolality and hyponatremia; Z98.890 Other specified postprocedural states; Z98.51 Tubal ligation status; Z79.899 Other long term (current) drug therapy; F15.91 Other stimulant use, unspecified, in remission; F10.91 Alcohol use, unspecified, in remission; F17.290 Nicotine dependence, other tobacco product, uncomplicated
CPT/HCPCS: 49083; C1729; P9047; A6258

== ENCOUNTER 2023-12-19 07:50 | Day surgery (SDC) | payer MEDICAID ==
[2023-12-19] VITALS (8 sets, daily range): BP systolic 91–110; BP diastolic 57–86; PULSE 72–84; RESP 16; TEMP 98.1; O2SAT 94–99
[~2023-12-19] VITALS: Ht 167.6 cm; Wt 67.2 kg
[~2023-12-19 07:50] MED LIST changes: +DOXE10CA3 PO; -HYDR-3686 PO; -ONDA-103 PO
[2023-12-19] MEDS ORDERED: OMEP40CA21 PO (08:28)
[2023-12-19] MEDS: albumin 25% 100mL bottle x 1 IV PRN (09:25)
== END 2023-12-19 10:20 | disposition home or self-care (01) ==
LOC: SSTAY O 07:50
PROVIDERS: ATTEND Radiology Vascular & Interventional Radiology
DX: K70.31 Alcoholic cirrhosis of liver with ascites (principal); F10.91 Alcohol use, unspecified, in remission; E78.00 Pure hypercholesterolemia, unspecified; K21.9 Gastro-esophageal reflux disease without esophagitis; J44.9 Chronic obstructive pulmonary disease, unspecified; E87.1 Hypo-osmolality and hyponatremia; F15.91 Other stimulant use, unspecified, in remission; Z98.890 Other specified postprocedural states; Z87.19 Personal history of other diseases of the digestive system; Z98.51 Tubal ligation status; Z79.899 Other long term (current) drug therapy; F17.290 Nicotine dependence, other tobacco product, uncomplicated
CPT/HCPCS: 49083; C1729; P9047; 96360; A6258

== ENCOUNTER 2023-12-26 05:56 | Day surgery (SDC) | payer MEDICAID ==
[~2023-12-26] VITALS: Ht 167.6 cm; Wt 63.9 kg
[2023-12-26] VITALS (8 sets, daily range): BP systolic 104–132; BP diastolic 61–84; PULSE 73–91; RESP 15–17; TEMP 98; O2SAT 95–99
[~2023-12-26 05:56] MED LIST changes: +OMEP40CA21 PO
[2023-12-26] MEDS ORDERED: NICO-631 TOP (06:22)
[2023-12-26] MEDS: albumin 25% 100mL bottle x 1 IV PRN (07:44)
== END 2023-12-26 09:32 | disposition home or self-care (01) ==
LOC: SSTAY O 05:56
PROVIDERS: ATTEND Radiology Diagnostic Radiology
DX: K70.31 Alcoholic cirrhosis of liver with ascites (principal); E78.00 Pure hypercholesterolemia, unspecified; K21.9 Gastro-esophageal reflux disease without esophagitis; E87.1 Hypo-osmolality and hyponatremia; J44.9 Chronic obstructive pulmonary disease, unspecified; Z98.890 Other specified postprocedural states; Z98.51 Tubal ligation status; F15.91 Other stimulant use, unspecified, in remission; F17.290 Nicotine dependence, other tobacco product, uncomplicated; F10.91 Alcohol use, unspecified, in remission; Z79.899 Other long term (current) drug therapy
CPT/HCPCS: 49083; C1729; P9047; A6258; A6449

== ENCOUNTER 2024-02-01 06:06 | Day surgery (SDC) | payer MEDICAID ==
[2024-02-01] VITALS (8 sets, daily range): BP systolic 93–120; BP diastolic 42–79; PULSE 16–89; RESP 16; TEMP 98.3; O2SAT 97–99
[~2024-02-01] VITALS: Ht 167.6 cm; Wt 70.4 kg
[~2024-02-01 06:06] MED LIST changes: +NICO-631 TOP
[2024-02-01] MEDS ORDERED: ONDA-103 PO (06:21)
[2024-02-01] MEDS: albumin 25% 100mL bottle x 1 IV PRN (07:58)
== END 2024-02-01 09:15 | disposition home or self-care (01) ==
LOC: SSTAY O 06:06
PROVIDERS: ATTEND Internal Medicine Critical Care Medicine
DX: R18.8 Other ascites (principal); Z79.899 Other long term (current) drug therapy; Z98.51 Tubal ligation status
CPT/HCPCS: 49083; C1729; J3490; P9047; A6258; A6449

== ENCOUNTER 2024-02-07 05:46 | Day surgery (SDC) | payer MEDICAID ==
[~2024-02-07] VITALS: Ht 167.6 cm; Wt 70.9 kg
[2024-02-07] VITALS (7 sets, daily range): BP systolic 114–131; BP diastolic 54–88; PULSE 69–90; RESP 15–16; TEMP 97.5; O2SAT 97–99
[~2024-02-07 05:46] MED LIST changes: +ONDA-103 PO
[2024-02-07] MEDS ORDERED: IBUP-1984 PO (06:09)
[2024-02-07] MEDS: albumin 25% 100mL bottle x 1 IV PRN (07:39)
== END 2024-02-07 08:50 | disposition home or self-care (01) ==
LOC: SSTAY O 05:46
PROVIDERS: ATTEND Internal Medicine Critical Care Medicine
DX: R18.8 Other ascites (principal); F17.210 Nicotine dependence, cigarettes, uncomplicated; Z79.899 Other long term (current) drug therapy
CPT/HCPCS: 49083; C1729; P9047; 96360; A6258; A6449

== ENCOUNTER 2024-02-14 06:32 | Day surgery (SDC) | payer MEDICAID ==
[2024-02-14] VITALS (11 sets, daily range): BP systolic 75–120; BP diastolic 60–83; PULSE 12–124; RESP 16–18; TEMP 98; O2SAT 97–100
[~2024-02-14] VITALS: Ht 167.6 cm; Wt 72.4 kg
[~2024-02-14 06:32] MED LIST changes: +IBUP-1984 PO
[2024-02-14] MEDS: albumin 25% 100mL bottle x 1 IV PRN (07:13)
== END 2024-02-14 10:47 | disposition home or self-care (01) ==
LOC: SSTAY O 06:32
PROVIDERS: ATTEND Internal Medicine Critical Care Medicine
DX: K70.31 Alcoholic cirrhosis of liver with ascites (principal); I10 Essential (primary) hypertension; E78.5 Hyperlipidemia, unspecified; J44.9 Chronic obstructive pulmonary disease, unspecified; E66.3 Overweight; F17.210 Nicotine dependence, cigarettes, uncomplicated; Z79.1 Long term (current) use of non-steroidal anti-inflammatories (NSAID); Z79.891 Long term (current) use of opiate analgesic; Z79.899 Other long term (current) drug therapy; Z98.51 Tubal ligation status; Z68.21 Body mass index [BMI] 21.0-21.9, adult
CPT/HCPCS: 49083; C1729; P9047; A6258; A6402

== ENCOUNTER 2024-02-21 06:18 | Day surgery (SDC) | payer MEDICAID ==
[~2024-02-21] VITALS: Ht 167.6 cm; Wt 71.7 kg
[2024-02-21] VITALS (9 sets, daily range): BP systolic 90–107; BP diastolic 45–74; PULSE 72–88; RESP 14–16; TEMP 98.9; O2SAT 97–99
[~2024-02-21 06:18] MED LIST changes: -NICO-631 TOP
[2024-02-21] MEDS ORDERED: normal saline 1000ml 1,000 ML IV PRN (06:40)
[2024-02-21] MEDS ORDERED: MIDAZolam 1mg/ml 10ml vial IV ONE (06:40)
[2024-02-21] MEDS: albumin 25% 100mL bottle x 1 IV PRN (10:11)
== END 2024-02-21 11:10 | disposition home or self-care (01) ==
LOC: SSTAY O 06:18
PROVIDERS: ATTEND Internal Medicine Critical Care Medicine
DX: R18.8 Other ascites (principal)
CPT/HCPCS: 49083; C1729; P9047; A6258; A6449

== ENCOUNTER 2024-02-28 06:11 | Day surgery (SDC) | payer MEDICAID ==
[~2024-02-28] VITALS: Ht 167.6 cm; Wt 72.0 kg
[2024-02-28] VITALS (8 sets, daily range): BP systolic 104–149; BP diastolic 56–85; PULSE 72–89; RESP 16; TEMP 97.8; O2SAT 96–98
[2024-02-28] MEDS ORDERED: CETI10TA14 PO (06:40)
[2024-02-28] MEDS: albumin 25% 100mL bottle x 1 IV PRN (06:45)
== END 2024-02-28 09:02 | disposition home or self-care (01) ==
LOC: SSTAY O 06:11
PROVIDERS: ATTEND Internal Medicine Critical Care Medicine
DX: K70.31 Alcoholic cirrhosis of liver with ascites (principal); E78.5 Hyperlipidemia, unspecified; J44.9 Chronic obstructive pulmonary disease, unspecified; E66.3 Overweight; F17.210 Nicotine dependence, cigarettes, uncomplicated; Z98.51 Tubal ligation status; Z68.25 Body mass index [BMI] 25.0-25.9, adult
CPT/HCPCS: 49083; C1729; P9047; A6258; A6402

== ENCOUNTER 2024-03-19 06:43 | Day surgery (SDC) | payer MEDICAID ==
[2024-03-19] VITALS (9 sets, daily range): BP systolic 106–121; BP diastolic 61–74; PULSE 85–95; RESP 16; TEMP 97.4; O2SAT 96–98
[~2024-03-19] VITALS: Ht 167.6 cm; Wt 78.4 kg
[~2024-03-19 06:43] MED LIST changes: +CETI10TA14 PO; -IBUP-1984 PO
[2024-03-19] MEDS ORDERED: SERT-432 PO (07:03)
[2024-03-19] MEDS: albumin 25% 100mL bottle x 1 IV PRN (07:13)
== END 2024-03-19 11:20 | disposition home or self-care (01) ==
LOC: SSTAY O 06:43
PROVIDERS: ATTEND Internal Medicine Critical Care Medicine
DX: R18.8 Other ascites (principal); K74.60 Unspecified cirrhosis of liver
CPT/HCPCS: 49083; C1729; P9047; A6258; A6449

== ENCOUNTER 2024-03-27 06:07 | Day surgery (SDC) | payer MEDICAID ==
[2024-03-27] VITALS (7 sets, daily range): BP systolic 113–121; BP diastolic 57–73; PULSE 91–94; RESP 16; TEMP 98.2; O2SAT 97–98
[~2024-03-27] VITALS: Ht 167.6 cm; Wt 78.8 kg
[~2024-03-27 06:07] MED LIST changes: -ATOR10TA70 PO; -CETI10TA14 PO; -FLUO10TA34 PO; -ONDA-103 PO; +SERT-432 PO
[2024-03-27] MEDS: albumin 25% 100mL bottle x 1 IV PRN (07:48)
== END 2024-03-27 08:17 | disposition home or self-care (01) ==
LOC: SSTAY O 06:07
PROVIDERS: ATTEND Internal Medicine Critical Care Medicine
DX: R18.8 Other ascites (principal); E78.5 Hyperlipidemia, unspecified; J44.9 Chronic obstructive pulmonary disease, unspecified; E66.3 Overweight; F17.210 Nicotine dependence, cigarettes, uncomplicated; Z79.1 Long term (current) use of non-steroidal anti-inflammatories (NSAID); Z79.891 Long term (current) use of opiate analgesic; Z79.899 Other long term (current) drug therapy; Z98.51 Tubal ligation status; Z68.28 Body mass index [BMI] 28.0-28.9, adult
CPT/HCPCS: 49083; C1729; P9047; 96360; A6258

== ENCOUNTER 2024-04-05 06:12 | Day surgery (SDC) | payer MEDICAID ==
[~2024-04-05] VITALS: Ht 167.6 cm; Wt 73.3 kg
[2024-04-05] VITALS (11 sets, daily range): BP systolic 112–129; BP diastolic 57–74; PULSE 82–92; RESP 16; TEMP 97.6; O2SAT 96–99
[2024-04-05] MEDS: albumin 25% 100mL bottle x 1 IV PRN (07:38)
[2024-04-05 08:01] LABS: BASOPHILS # (AUTO) 0.1 X10'3 (0-0.2); EOSINOPHILS # (AUTO) 0.2 X10'3 (0-0.9); EOSINOPHILS % (AUTO) 3.2 % (0-6); LYMPHOCYTES # (AUTO) 1.1 X10'3 (1.1-4.8); MEAN CORPUSCULAR HEMOGLOBIN 27.5 PG (27.0-31.0); MEAN CORPUSCULAR HGB CONC 32.6 g/dL (33.0-36.5); MEAN CORPUSCULAR VOLUME 84.3 FL (78-98); MEAN PLATELET VOLUME 6.9 FL (7.4-10.4); MONOCYTES # (AUTO) 0.9 X10'3 (0-0.9); MONOCYTES % (AUTO) 15.5 % (2-12); NEUTROPHILS # (AUTO) 3.4 X10'3 (1.8-7.7); NEUTROPHILS % (AUTO) 60.3 % (42-75); PRE OP HEMATOCRIT 31.8 % (35.0-45.0); PRE OP PLATELET COUNT 248 X10'3 (140-440); PRE OP WHITE BLOOD COUNT 5.6 10'3 (4.8-10.8); RED BLOOD COUNT 3.78 X10'6 (4.20-5.60); RED CELL DISTRIBUTION WIDTH 15.9 % (11.5-14.5)
[2024-04-05 08:05] LABS: PRE OP HEMOGLOBIN 10.4 g/dL (12.0-16.0)
[2024-04-05 08:11] LABS: ALBUMIN 2.8 G/DL (3.4-5.0); ANION GAP 9 (8-16); BLOOD UREA NITROGEN 10 MG/DL (7-18); BUN/CREATININE RATIO 11.2 (10.0-20.0); CALCIUM 8.4 MG/DL (8.5-10.1); CHLORIDE 104 MMOL/L (99-107); CREATININE 0.89 MG/DL (0.40-0.90); GLUCOSE 88 MG/DL (70-104); POTASSIUM 3.9 MMOL/L (3.5-5.1); SODIUM 140 MMOL/L (135-145); TOTAL CARBON DIOXIDE 27.1 MMOL/L (24-32); eCRCL 67 ML/MIN; eGFR 66 ML/MIN
== END 2024-04-05 09:15 | disposition home or self-care (01) ==
LOC: SSTAY O 06:12
PROVIDERS: ATTEND Internal Medicine Critical Care Medicine
DX: R18.8 Other ascites (principal); I10 Essential (primary) hypertension; E78.5 Hyperlipidemia, unspecified; J44.9 Chronic obstructive pulmonary disease, unspecified; E66.3 Overweight; F17.210 Nicotine dependence, cigarettes, uncomplicated; Z79.1 Long term (current) use of non-steroidal anti-inflammatories (NSAID); Z79.891 Long term (current) use of opiate analgesic; Z79.899 Other long term (current) drug therapy; Z98.51 Tubal ligation status; Z98.890 Other specified postprocedural states; Z68.26 Body mass index [BMI] 26.0-26.9, adult
CPT/HCPCS: 36415; 49083; 80048; 82140; 85025; C1729; P9047; A6258

== ENCOUNTER → 2024-04-05 | Outpatient (CLI) | payer MEDICAID | END | disposition home or self-care (01) | LOC: RAD 06:13 | PROVIDERS: ATTEND Transplant Surgery | DX: K80.20 Calculus of gallbladder without cholecystitis without obstruction (principal); K83.8 Other specified diseases of biliary tract; M24.10 Other articular cartilage disorders, unspecified site; K70.31 Alcoholic cirrhosis of liver with ascites | CPT/HCPCS: 76700 ==

== ENCOUNTER 2024-04-24 06:27 | Day surgery (SDC) | payer MEDICAID ==
[~2024-04-24] VITALS: Ht 167.6 cm; Wt 74.8 kg
[2024-04-24] MEDS ORDERED: albumin 25% 100mL bottle x 1 IV PRN (06:45)
[2024-04-24] MEDS ORDERED: normal saline 1000ml 1,000 ML IV PRN (06:45)
[2024-04-24] MEDS ORDERED: FURO-150 PO (06:52)
[2024-04-24] MEDS ORDERED: SPIR25TA5 PO (06:53)
[2024-04-24] MEDS ORDERED: SERT-433 PO (06:54)
== END 2024-04-24 07:45 | disposition home or self-care (01) ==
LOC: SSTAY O 06:27
PROVIDERS: ATTEND Internal Medicine Critical Care Medicine
DX: R18.8 Other ascites (principal); Z53.8 Procedure and treatment not carried out for other reasons; I10 Essential (primary) hypertension; E78.5 Hyperlipidemia, unspecified; J44.9 Chronic obstructive pulmonary disease, unspecified; E66.3 Overweight; F17.210 Nicotine dependence, cigarettes, uncomplicated; Z79.1 Long term (current) use of non-steroidal anti-inflammatories (NSAID); Z79.891 Long term (current) use of opiate analgesic; Z79.899 Other long term (current) drug therapy; Z68.26 Body mass index [BMI] 26.0-26.9, adult
CPT/HCPCS: 76705; A6258; A6449

== ENCOUNTER 2024-11-08 09:57 | Outpatient (CLI) | payer MEDICAID ==
[~2024-11-08 09:57] MED LIST changes: +FURO-150 PO; -FURO20TA4 PO; +LACT-373 PO; -LACT10SO3 PO; -SERT-432 PO; +SERT-433 PO; -URSO300C2 PO
== END 2024-11-08 23:59 | disposition home or self-care (01) ==
LOC: US 09:57
PROVIDERS: ATTEND Nurse Practitioner
DX: K70.31 Alcoholic cirrhosis of liver with ascites (principal); K76.82 Hepatic encephalopathy; L29.9 Pruritus, unspecified
CPT/HCPCS: 93975

== ENCOUNTER 2025-01-24 08:32 | Outpatient (CLI) | payer MEDICAID ==
[~2025-01-24 08:32] MED LIST changes: +iohexol 300mg/ml 100ml inj. ONE
== END 2025-01-24 23:59 | disposition home or self-care (01) ==
LOC: RAD 08:32
PROVIDERS: ATTEND Surgery
DX: K74.60 Unspecified cirrhosis of liver (principal); R10.9 Unspecified abdominal pain; R18.8 Other ascites
CPT/HCPCS: 74177; Q9967

== ENCOUNTER 2025-04-11 14:43 | Outpatient (CLI) | payer MEDICAID ==
[~2025-04-11 14:43] MED LIST changes: -iohexol 300mg/ml 100ml inj. ONE
--- NOTE | 2025-04-15 13:04 | RADIOLOGY REPORT ---
EXAM: DI HIP UNILATERAL 2 VIEWS CLINICAL INDICATION: LUMBAR/LEFT HIP PAIN TECHNIQUE: DI HIP UNILATERAL 2 VIEWS Comparison: None FINDINGS/IMPRESSION: There is no evidence of acute fracture or dislocation. The visualized joint space is well maintained. The alignment is anatomical. There is no radiopaque foreign body.
--- NOTE | 2025-04-15 13:04 | RADIOLOGY REPORT ---
INDICATION: LUMBAR/LEFT HIP PAIN COMPARISON: None TECHNIQUE: 3 views of the lumbar spine were obtained. FINDINGS: The lumbar vertebral alignment is normal. The intervertebral disc spaces are well-maintained. No significant facet arthropathy is noted. No acute fracture, vertebral compression deformity or aggressive osseous lesions. The paravertebral soft tissues are grossly unremarkable. IMPRESSION: No acute fracture or subluxation.
== END 2025-04-11 23:59 | disposition home or self-care (01) ==
LOC: RAD 14:43
PROVIDERS: ATTEND Internal Medicine
DX: M54.50 Low back pain, unspecified (principal); M25.552 Pain in left hip
CPT/HCPCS: 72100; 73502